=== PATIENT | female | born 1950 | race Caucasian/White ===

== ENCOUNTER → 2016-04-29 | Outpatient (CLI) | payer BC ==
[~2016-04-29] MED LIST: ASPI1TAB83 PO; CALC500T83 PO; CETI10TA84 PO; CHOL200027 PO; CYAN100020 PO; ESCI1TAB10 PO; LUTE20TA PO; METO25TA3 PO; MULT-190 PO; SIMV20TA2 PO; TAMO20TA47 PO
== END | disposition home or self-care (01) ==
LOC: C.PAPS 11:44
PROVIDERS: ATTEND Obstetrics & Gynecology
DX: Z12.4 Encounter for screening for malignant neoplasm of cervix (principal)

== ENCOUNTER → 2016-05-11 | Outpatient (CLI) | payer BC ==
--- NOTE | 2016-05-11 16:17 | MAMMOGRAPHY REPORT ---
BILATERAL DIGITAL SCREENING MAMMOGRAM TOMOSYNTHESIS WITH CAD: 05/11/2016 CLINICAL HISTORY: Routine screening examination. TECHNIQUE: Breast tomosynthesis in addition to standard 2D mammography was performed. Current study was also evaluated with a Computer Aided Detection (CAD) system. COMPARISON: Comparison is made to exams dated: 05/07/2015 mammogram, 03/26/2014 mammogram, 03/31/2012 mammogram, 10/02/2014 mammogram, 04/05/2013 mammogram, and 02/13/2009 mammogram - [facility]. BREAST COMPOSITION: The tissue of both breasts is heterogeneously dense, which may obscure small ma sses. FINDINGS: There is expected architectural distortion in the upper outer quadrant of the right breas t, at the site of prior surgery. There are a few stable benign-appearing microcalcifications within the left breast. No new suspicious mass, architectural distortion or cluster of microcalcifications is seen. IMPRESSION: ACR BI-RADS CATEGORY 1: NEGATIVE There is no mammographic evidence of malignancy. A 1 year screening mammogram is recommended. The p atient will receive written notification of the results. Approximately 10% of breast cancers are not detected with mammography. A negative mammographic repor t should not delay biopsy if a clinically suggestive mass is present. Jessica Real M.D. ay/:05/11/2016 15:12:19 Apiculturist: Diana DAWSON(Mik)(Kw[place]), [facility] letter sent: Normal 1/2 BI-RADS Code: ACR BI-RADS Category 1: Negative
== END | disposition home or self-care (01) ==
LOC: C.MAMM 09:54
PROVIDERS: ATTEND Obstetrics & Gynecology
DX: Z12.31 Encounter for screening mammogram for malignant neoplasm of breast (principal); Z85.3 Personal history of malignant neoplasm of breast

== ENCOUNTER → 2016-10-21 | Outpatient (CLI) | payer BC | END | disposition home or self-care (01) | LOC: C.PATHSPEC 17:26 | PROVIDERS: ATTEND Plastic Surgery | DX: L72.0 Epidermal cyst (principal) ==

== ENCOUNTER → 2017-02-16 | Outpatient (CLI) | payer BC ==
[~2017-02-16] MED LIST changes: -TAMO20TA47 PO; +TAMO20TA9 PO
[2017-02-16 13:05] VITALS: BP_SYST 137; BP_SYST 150; BP_DIAS 81; BP_DIAS 84; PULSE 64; TEMP 36.7; O2SAT 96
--- NOTE | 2017-02-16 13:50 | Radiation Oncology Follow-Up ---
Radiation Oncology Follow-Up Date of Visit Feb 16, 2017. Reason For Visit Annual follow-up Radiation Completion Date Mammosite 07/17/12 Diagnosis (1) Intraductal carcinoma in situ of right breast Status: Resolved Onset Date: 05/15/2012 Stage: 0 Permanent Comment: Abnormal right breast mammogram status post needle localization and excisional biopsy 05/15/2012 revealing high-grade DCIS Estrogen receptor positive, progesterone receptor, positive Stage [id number] Stage 0 Status post completion of radiation therapy utilizing MammoSite treatment completed 07/17/2012 received 2400 cGy Last Edited By: Ankita Pandey on Feb 16, 2017 13:47 Interim History She has been doing well over this past year. She denies any changes to her breast. She's noted no masses or tenderness and no change of the axilla. She is up-to-date on mammography. She had a mammogram in 05/11/2016. There was no mammographic evidence of malignancy. A one-year screening mammogram was recommended. This was given a BI-RADS Category 1. She continues on tamoxifen and denies side effects. Allergies Coded Allergies: Amoxicillin (Verified Allergy, Intermediate, HIVES, 03/08/16) Azithromycin (Verified Allergy, Intermediate, HIVES, 03/08/16) Clavulanic Acid (Verified Allergy, Intermediate, HIVES, 03/08/16) Iodinated Contrast Media (Verified Allergy, Unknown, ITCHING, 03/08/16) Codeine (Verified Adverse Reaction, Intermediate, HALLUCINATIONS, 03/08/16 ) Erythromycin (Verified Adverse Reaction, Intermediate, MADE PT SICK TO STOMACH, 03/08/16) Home Medications Scheduled Aspirin (Aspirin), 1 TAB PO HS Calcium (Calcium), 1 TAB PO HS Cetirizine (Zyrtec), 10 MG PO HS Cholecalciferol (Vitamin D-3), 1 TAB PO HS Cyanocobalamin (Vitamin B12), 1 TAB PO HS Escitalopram Oxalate (Lexapro), 20 MG PO HS Lutein (Lutein), 1 TAB PO HS Metoprolol Succinate (Toprol Xl), 25 MG PO HS Ocuvite Preservision (Ocuvite Preservision), 1 TAB PO HS Simvastatin (Zocor), 20 MG PO HS Tamoxifen (Nolvadex), 20 MG PO HS Review of Systems Gastrointestinal: Symptoms: WNL Oral: Symptoms: No Problems Respiratory: Symptoms: WNL Urinary: Symptoms: WNL Skin: Symptoms: No Problems Breast: Right Upper Arm Measurement: 29.0 Right Mid Arm Measurement: 26.0 Right Wrist Measurement: 16.5 Left Upper Arm Measurement: 30.0 Left Mid Arm Measurement: 26.0 Left Wrist Measurement: 16.0 Arm Dominence: Right Physical Exam Vital Signs Date Time Temp Pulse Resp B/P (MAP) Pulse Ox O2 Delivery O2 Flow Rate FiO2 02/16/17 13:05 36.7 64 16 150/84 96 137/81 Fatigue: None General Appearance: no apparent distress Eyes: normal inspection, EOMI ENT: normal ENT inspection, hearing grossly normal Neck: no adenopathy, thyroid normal Respiratory/Chest: lungs clear, no respiratory distress, no accessory muscle use Breast: Breast examination reveals well-healed incisions of the right breast. There are no masses or tenderness and no axillary adenopathy. She has no skin retractions or nipple changes. There is very minimal fibrous changes. Using the Caldwell score cosmesis she has a in excellent outcome. The left breast showed no masses or tenderness and no axillary adenopathy. Cardiovascular: regular rate, rhythm, no gallop, no murmur Abdomen: non tender Extremities: no pedal edema Neurologic/Psychiatric: no motor/sensory deficits, alert, normal mood/affect Skin: warm/dry Additional Studies Patient: FARHAN ORELLANA [facility] Rec: [id number] Address1: [address] [place] [address] Address2: [facility] ID: [id number] Date: 1950 Sex: F Ref Phy: Ankita Pandey PA-C Att Phy: Terry Stratton M.D. Amaya Phy: Maude Cuadra MD Inter Phy: Jessica Real MD [facility] Zip: [place] [address] SC: C.MAMM Report #: [id number] Community Recreation Programmer: KAREEM Diagnosis: ASYMPTOMATIC,HX OF [place]AST [place] Service Date: 05/11/16 MNE: [id number] Ordering Dr: Terry Stratton M.D. CC: Terry Stratton M.D. CONF: DICTATED BY: Jessica Real MD MAMMOGRAPHY REPORT BILATERAL DIGITAL SCREENING MAMMOGRAM TOMOSYNTHESIS WITH CAD: 05/11/2016 CLINICAL HISTORY: Routine screening examination. TECHNIQUE: Breast tomosynthesis in addition to standard 2D mammography was performed. Current study was also evaluated with a Computer Aided Detection (CAD ) system. COMPARISON: Comparison is made to exams dated: 05/07/2015 mammogram, 03/26/2014 mammogram, 03/31/2012 mammogram, 10/02/2014 mammogram, 04/05/2013 mammogram, and 02/13/2009 mammogram - [facility]. BREAST COMPOSITION: The tissue of both breasts is heterogeneously dense, which may obscure small masses. FINDINGS: There is expected architectural distortion in the upper outer quadrant of the right breast, at the site of prior surgery. There are a few stable benign-appearing microcalcifications within the left breast. No new suspicious mass, architectural distortion or cluster of microcalcifications is seen. IMPRESSION: ACR BI-RADS CATEGORY 1: NEGATIVE There is no mammographic evidence of malignancy. A 1 year screening mammogram is recommended. The patient will receive written notification of the results. Approximately 10% of breast cancers are not detected with mammography. A negative mammographic report should not delay biopsy if a clinically suggestive mass is present. Jessica Real M.D. ay/:05/11/2016 15:12:19 Housekeeper Supervisor: Diana DAWSON(Mik)(M), [facility] letter sent: Normal 1/2 BI-RADS Code: ACR BI-RADS Category 1: Negative Dictated by: Jessica Real MD Signed by: Jessica Real MD Assessment & Plan Plan: Continue with annual screening mammography. The mammogram was scheduled for after 05/11/2016. She requested that her next mammogram be before her appointment with Dr. Alexander on May 16. She'll continue regular follow- up with Dr. Cuadra. She continues on tamoxifen. We asked her to return to our office in 1 year. She may cause she has any question or concerns in the interim. Total Time In Follow-Up I spent 20 minutes speaking to the patient performing examination. I spent 15 minutes reviewing information and completing this note. Copy To Shaun Alexander MD; Maude Cuadra MD
== END | disposition home or self-care (01) ==
LOC: C.ONC 12:51
PROVIDERS: ATTEND Physician Assistant Medical
DX: Z08 Encounter for follow-up examination after completed treatment for malignant neoplasm (principal); Z92.3 Personal history of irradiation; Z85.3 Personal history of malignant neoplasm of breast

== ENCOUNTER → 2017-05-12 | Outpatient (CLI) | payer BC ==
--- NOTE | 2017-05-12 13:44 | MAMMOGRAPHY REPORT ---
BILATERAL DIGITAL SCREENING MAMMOGRAM TOMOSYNTHESIS WITH CAD: 05/12/2017 CLINICAL HISTORY: Asymptomatic. Personal history of breast cancer. TECHNIQUE: Breast tomosynthesis in addition to standard 2D mammography was performed. Current study was also evaluated with a Computer Aided Detection (CAD) system. COMPARISON: Comparison is made to exams dated: 05/11/2016 mammogram, 05/07/2015 mammogram, 10/02/2014 m ammogram, 04/22/2014 mammogram, 03/26/2014 mammogram, and 04/05/2013 mammogram - [facility] enter. BREAST COMPOSITION: The tissue of both breasts is heterogeneously dense, which may obscure small mas ses. FINDINGS: No suspicious masses, calcifications, or areas of architectural distortion are noted in ei ther breast. There has been no significant interval change compared to prior exams. There are stable postsurgical changes in the right upper outer quadrant from prior lumpectomy. IMPRESSION: ACR BI-RADS CATEGORY 2: BENIGN There is no mammographic evidence of malignancy. A 1 year screening mammogram is recommended. The pa tient will receive written notification of the results. Approximately 10% of breast cancers are not detected with mammography. A negative mammographic report should not delay biopsy if a clinically suggestive mass is present. Katerine Byrd M.D. /:05/12/2017 12:23:23 Scissors Grinder: Chucho MISTRY)(M), [facility] letter sent: Normal 1/2 BI-RADS Code: ACR BI-RADS Category 2: Benign
== END | disposition home or self-care (01) ==
LOC: C.MAMM 09:28
PROVIDERS: ATTEND Physician Assistant Medical
DX: Z12.31 Encounter for screening mammogram for malignant neoplasm of breast (principal); Z85.3 Personal history of malignant neoplasm of breast

== ENCOUNTER → 2017-07-19 | Outpatient (CLI) | payer BC ==
[~2017-07-19] MED LIST changes: -METO25TA3 PO; +METO25TA4 PO
[2017-07-19 13:48] LABS: ALT/SGPT 20 U/L (12-78); BLOOD UREA NITROGEN 11 mg/dl (7-18); CALCIUM 9.2 mg/dl (8.5-10.1); CARBON DIOXIDE 26 mmol/L (21-32); CHOLESTEROL 171 mg/dl (0-200); CREATININE 0.85 mg/dl (0.60-1.20); GLUCOSE 103 mg/dl (70-99); POTASSIUM 4.3 mmol/L (3.5-5.1); SODIUM 140 mmol/L (136-145)
[2017-07-19 13:50] LABS: LDL CHOLESTEROL CALCULATED 77 mg/dl
== END | disposition home or self-care (01) ==
LOC: C.LABBC 09:33
PROVIDERS: ATTEND Family Medicine
DX: Z11.59 Encounter for screening for other viral diseases (principal); I10 Essential (primary) hypertension; E78.00 Pure hypercholesterolemia, unspecified

== ENCOUNTER → 2017-08-18 | Outpatient (CLI) | payer BC | END | disposition home or self-care (01) | LOC: C.MAMM 15:20 | PROVIDERS: ATTEND Family Medicine | DX: N95.8 Other specified menopausal and perimenopausal disorders (principal); Z82.62 Family history of osteoporosis; Z85.3 Personal history of malignant neoplasm of breast ==